=== PATIENT | male | born 1960 | race African-American/Black ===

== ENCOUNTER 2018-03-08 11:51 | Inpatient (IN) | payer OTHER ==
[~2018-03-08] VITALS: Ht 177.8 cm; Wt 76.2 kg
--- NOTE | ~2018-03-08 | H ---
[facility] [place] [address] HISTORY AND PHYSICAL Name: DASIA LYONS Room #: 208-P [facility] Jose Elias MKesha#: [id number] Admission: 03/08/18 Attend Phys: Oren Pritchard MD, Discharge: Date of : 58 Report #: [id number] THIS REPORT FOR: //name// CC: FAM unknown Oren Pritchard DATE OF SERVICE: 03/08/2018 HISTORY OF PRESENT ILLNESS: The patient is a 57-year-old male without any real significant past medical history. He has had some borderline cholesterol elevation in the past. He presents with a 2-week history of some intermittent exertional chest discomfort. 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 He had rest pain this morning with significant substernal chest pain associated with shortness of breath and diaphoresis. This was the worst that he had had. Previously, he had been with doing indoor rock climbing and some running. But this has only been occurring for a couple of weeks. Slightly more fatigued. No syncope or presyncope and no prior cardiac history. Essentially he takes no medications. His laboratory work looked relatively normal. His troponin was 0.55. The EKG from the field suggested ST elevation anteriorly with some Q-waves. He does not note any other prolonged episodes of pain nothing longer than 30 or 60 seconds as far as this discomfort prior to this. ALLERGIES: SULFA. PAST MEDICAL HISTORY: Positive only for meniscal surgery on his knee. He had some borderline cholesterol elevation, although not treated. He has had some statins in the past, but apparently had some myalgias, simvastatin he had been intolerant to. FAMILY HISTORY: Positive with his father and grandfather that was for premature disease. Father was 68. 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 He lives in [place], [place]. REVIEW OF SYSTEMS: Negative except for some occasional nocturia. PHYSICAL EXAMINATION: GENERAL: He is alert, in minimal discomfort (EKG shows some improvement). VITAL SIGNS: Blood pressure 140/82. HEENT: Eyes reveal xanthelasma. His pharynx is clear. NECK: Shows preserved upstrokes without JVD or bruits. LUNGS: Clear. CARDIOVASCULAR: Regular rate and rhythm, S1, S2, without murmur or gallop. ABDOMEN: Soft. No HSM or abdominal bruit. [facility] [address] [place] [address] HISTORY AND PHYSICAL Name: DASIA LYONS Room #: 208-P [facility] Jose Elias Patrick#: [id number] Admission: 03/08/18 Attend Phys: Oren Pritchard MD, Discharge: Date of : 58 Report #: [id number] EXTREMITIES: Reveal no edema. Pulses intact. NEUROLOGIC: Nonfocal. SKIN: Warm and dry without xanthoma or ulcer. MUSCULOSKELETAL: No gross joint deformity. ASSESSMENT: 1. 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 2. History of hypercholesterolemia. RECOMMENDATIONS AND PLAN: We will proceed emergently catheterization lab to delineate the anatomy. The story sounds consistent with a stuttering infarct. Aspirin, Lipitor 80 and heparin have been given. Risks, benefits, alternatives were discussed with the patient. We are proceeding emergently to the catheterization lab for possible intervention. By: 1336 1353 Oren Pritchard MD, FACC /nt
--- NOTE | ~2018-03-08 | EKG ---
[address] [address] ELECTROCARDIOGRAM REPORT Name: DASIA LYONS Room #: 208-P ADM IN M.R.#: [id number] Admission: 03/08/18 Attend Phys: Oren Pritchard MD, Discharge: Date of : 58 Report #: [id number] THIS REPORT FOR: //name// [facility] Test Date: 2018-03-09 Test Time: 07:11:58 Pat Name: DASIA LYONS Department: Room: 208 P Gender: M Clinical Nursing Professor: JOSE : 1960 Requested By: Lori Steiner Order Number: [id number] MD: Zhou Johns Measurements Intervals [place] Rate: 63 P: 57 ND: 165 QRS: -57 QRSD: 73 T: 61 QT: 407 QTc: 417 Interpretive Statements Sinus rhythm Atrial premature complex Left atrial enlargement Left axis deviation Anteroseptal infarct, age indeterminate Compared to ECG 03/08/2018 11:53:13 Atrial premature complex(es) now present Electronically Signed On 03-09-2018 12:03:00 MORTARMAN by Zhou Johns [email or web address] <ELECTRONICALLY SIGNED> By: Zhou Johns MD 03/09/18 1203 0711 0711 Zhou Johns MD /EPI
--- NOTE | ~2018-03-08 | 2DMMODE ---
[facility] [address] [place] [address] 2 D/M-MODE ECHOCARDIOGRAM Name: SERENADASIA Room #: 208-P ADM IN M.R.#: [id number] Admission: 03/08/18 Attend Phys: Oren Pritchard, Discharge: Date of : 58 Date of Service: 03/09/18 0949 Report #: [id number] THIS REPORT FOR: //name// APPROVED REPORT Study performed: 03/09/2018 09:06:52 EXAM: Comprehensive 2D, Doppler, and color-flow Echocardiogram Patient Location: Echo lab Room #: 208 Status: routine BSA: 1.97 HR: 65 bpm BP: 122/76 mmHg Rhythm: NSR Other Information Study Quality: Adequate Indications CAD Chest Pain 2D Dimensions RVDd: 35.15 mm IVSd: 11.10 (7-11mm) LVOT Diam: 22.13 (18-24mm) LVDd: 38.03 mm PWd: 9.80 (7-11mm) Ascending Ao: 35.84 (22-36mm) LVDs: 25.37 (25-40mm) Aortic Root: 36.26 mm IVC: 18.00 mm Volumes Left Atrial Volume (Systole) Single Plane 4CH: 29.03 mL Single Plane 2CH: 44.77 mL LA ESV Index: 23.00 mL/m2 Aortic Valve AoV Peak Gurmeet.: 1.89 m/s AO Peak Gr.: 14.32 mmHg LVOT Max P.97 mmHg LVOT Max V: 1.58 m/s TITO Vmax: 3.21 cm2 AI Vmax: 3.45 m/s AI Stonewall: 1.63 m/s2 AI PHT: 612.95 ms [facility] [place] [address] [address] 2 D/M-MODE ECHOCARDIOGRAM Name: SERENADASIA Room #: 208-P [facility] IN ..#: [id number] Admission: 03/08/18 Attend Phys: Oren Pritchard, Discharge: Date of : 58 Date of Service: 03/09/18 0949 Report #: [id number] Mitral Valve E/A Ratio: 1.2 MV Decel. Time: 213.94 ms MV E Max Gurmeet.: 0.80 m/s MV A Gurmeet.: 0.68 m/s MV PHT: 62.04 ms IVRT: 87.66 ms Pulmonary Valve PV Peak Gurmeet.: 0.99 m/s PV Peak Gr.: 3.91 mmHg Pulmonary Vein P Vein S: 0.47 m/s P Vein A: 0.28 m/s P Vein D: 0.31 m/s P Vein A Dur.: 110.7 msec P Vein S/D Ratio: 1.52 Left Ventricle The left ventricle is normal size. There is hypokinesis in the apical septal wall. There is hypokinesis in the apical inferior wall. There is normal left ventricular wall thickness. The left ventricular systolic function is normal. The left ventricular ejection fraction is within the normal range. LVEF is 50 - 55% The left ventricular diastolic function is normal. Right Ventricle The right ventricle is normal size. The right ventricular systolic function is normal. Atria The left atrium size is normal. The right atrium size is normal. Aortic Valve The aortic valve is normal in structure. Mild aortic regurgitation. There is no aortic valvular stenosis. Mitral Valve The mitral valve is normal in structure. There is no mitral valve regurgitation noted. No evidence of mitral valve stenosis. Tricuspid Valve The tricuspid valve is normal in structure. There is no tricuspid valve regurgitation noted. Pulmonic Valve The pulmonary valve is normal in structure. There is no pulmonic [address] [address] 2 D/M-MODE ECHOCARDIOGRAM Name: DASIA LYONS Room #: 208-P [facility] IN .R.#: [id number] Admission: 03/08/18 Attend Phys: Oren Pritchard, Discharge: Date of : 58 Date of Service: 03/09/18 0949 Report #: [id number] valvular regurgitation. Great Vessels The aortic root is normal in size. IVC is normal in size and collapses >50% with inspiration. Pericardium There is no pericardial effusion. <Conclusion> The left ventricle is normal size. There is hypokinesis in the apical septal wall. There is hypokinesis in the apical inferior wall. LVEF is 50 - 55% The left ventricular diastolic function is normal. The right ventricle is normal size. The left atrium size is normal. Mild aortic regurgitation. There is no mitral valve regurgitation noted. There is no tricuspid valve regurgitation noted. The aortic root is normal in size. There is no pericardial effusion. <ELECTRONICALLY SIGNED> By: Oren Pritchard MD, FACC 03/09/1849 8 Oren Pritchard MD, FACC /INF
--- NOTE | ~2018-03-08 | EKG ---
[address] [address] ELECTROCARDIOGRAM REPORT Name: DASIA LYONS Room #: 170-9 [facility] M.R.#: [id number] Admission: 03/08/18 Attend Phys: Oren Pritchard MD, Discharge: Date of : 58 Report #: [id number] THIS REPORT FOR: //name// [facility] ED Test Date: 2018-03-08 Test Time: 11:53:13 Pat Name: DASIA LYONS Department: Room: 170 Gender: M Seo Manager: : 1960 Requested By: Moose Owen Order Number: [id number] MD: Bradley Mg Measurements Intervals [place] Rate: 68 P: 51 TN: 169 QRS: -42 QRSD: 86 T: 32 QT: 408 QTc: 434 Interpretive Statements Sinus rhythm Left axis deviation Anterior infarct, old No previous ECG available for comparison Electronically Signed On 03-08-2018 13:18:45 BAND TEACHER by Bradley Mg [email or web address] <ELECTRONICALLY SIGNED> By: Bradley Mg MD 03/08/18 1318 1153 1153 MD AL Payne
--- NOTE | ~2018-03-08 | EKG ---
[address] [address] ELECTROCARDIOGRAM REPORT Name: DASIA LYONS Room #: 208-P [facility] M.R.#: [id number] Admission: 03/08/18 Attend Phys: Oren Pritchard MD, Discharge: Date of : 58 Report #: [id number] THIS REPORT FOR: //name// [facility] Test Date: 2018-03-08 Test Time: 19:45:28 Pat Name: DASIA LYONS Department: Room: 208 P Gender: M Package Line Relief Operator: Chapis MILLER : 1960 Requested By: Oren Pritchard Order Number: [id number] MD: Christopher Kim Measurements Intervals [place] Rate: 63 P: 62 DE: 169 QRS: -57 QRSD: 84 T: 60 QT: 414 QTc: 424 Interpretive Statements Sinus rhythm Left anterior fascicular block Anteroseptal infarct, age indeterminate Compared to ECG 03/08/2018 11:53:13 Left anterior fascicular block now present Left-axis deviation no longer present Myocardial infarct finding still present Electronically Signed On 03-09-2018 9:16:44 MOLDED PARTS INSPECTOR by Christopher Kim [email or web address] <ELECTRONICALLY SIGNED> By: Christopher Kim MD 03/09/18 0916 44 44 Christopher Kim MD /EPI
--- NOTE | ~2018-03-08 | CATHLAB ---
[facility] [address] [place] [address] INVASIVE PROCEDURE REPORT Name: DASIA LYONS Room #: 210-P [facility] IN M.R.#: [id number] Admission: 03/08/18 Attend Phys: Oren Pritchard, Discharge: 03/10/18 Date of : 58 Date of Service: 03/11/18 0807 Report #: [id number] THIS REPORT FOR: //name// APPROVED REPORT Study performed: 03/08/2018 12:18:50 Patient Details Patient Status: ED Room #: The patient is a 57 year-old male Event Personnel Oren Pritchard Rn Peritoneal Dialysis, Aida HumphriesR, Monica Reid Amber Monitor, Antonio Daly RN Procedures Performed Art Access - R femoral artery* 43752 Initial Mod Sed Same Phys/QHP Gr5y 071260 78404 Mod Sed Same Phys/QHP Ea 640951 Left Heart Cath w/or w/o Coronaries 0056459 [facility] Aortogram Abdominal Peripheral Angio 448798 MITRA Revasc AMI Total/Sub Single LAD C9606 AMIREVSING Hemostasis w/ Mynx Indication Chest pain Procedure Narrative The Right Groin^ was infiltrated with 1% Lidocaine subcutaneous anesthesia. A PINNACLE 6FR Sheath #[id number] sheath was inserted into the RFA^. Coronary angiography was performed using coronary diagnostic catheters. The right coronary system was accessed and visualized with a JR4 catheter. The left coronary system was accessed and visualized with a JL4 catheter. The left ventricle was accessed and visualized with a PIGTAIL catheter. Left ventriculogram was performed in 30 degree projection. An aortogram of the abdominal aorta was performed. Closure device was deployed with a 6 Fr MYNXGRIP 6/7F #[id number]. The patient tolerated the procedure well and there were no complications associated with the procedure. There was no hematoma. Intraoperative Conscious Sedation Sedation start time: 12:30 Case end Time: 13:36 Fentanyl 50 mcg Versed 1 mg Fluoro Time: 9.50 minutes [facility] [address] [place] [address] INVASIVE PROCEDURE REPORT Name: DASIA LYONS Room #: 210-P [facility] IN M.R.#: [id number] Admission: 03/08/18 Attend Phys: Oren Pritchard, Discharge: 03/10/18 Date of : 58 Date of Service: 03/11/18 0807 Report #: [id number] Dose: DAP 8195.00 cGycm2 1146 mGy Contrast Type and Amount: Omnipaque 180 ml Hemodynamics The aortic pressure is 154/83 mmHg with a mean of 117 mmHg. The left ventricular pressure is 162/13 mmHg with a mean of mmHg. The left ventricular end diastolic pressure is 30 mmHg. PCI Technique Lesion Percutaneous coronary intervention was performed on the mid left anterior descending artery segment. A LAUNCHER 6FR EBU 4.5 #[id number] Guide Catheter was used to engage the ostium. A Luge Wire .014 x 182CM #[id number] Interventional Guidewire was used to cross the lesion. BALLOON DILATION A Balloon catheter Sprinter OTW 3.0 x 12 #[id number] was inserted and inflated up to 6.00atm for 23seconds. Additional Inflation: 8.00atm for 26seconds. Additional Inflation: 12.00atm for 25seconds. STENT DEPLOYMENT A drug-eluting stent RESOLUTE TOÑO OTW 3.5 X 15 #[id number] was inserted and inflated up to 10.00atm for 35seconds. Additional Inflation: 12.00atm for 27seconds. POST STENT DEPLOYMENT BALLOON DILATION A Balloon catheter TREK NC OTW 3.5 X 12 #[id number] was inserted and inflated up to 18.00atm for 32seconds. Additional Inflation: 18.00atm for 30seconds. Conclusion #1 successful emergent PTCA stent of a proximal mid LAD subtotal lesion placement of a 3.5 x 15 Toño drug-eluting stent postdilated to 3.7 mm yielding 0% residual JONO grade 3 flow (acute infarct vessel) #2 left main free of disease giving rise to LAD and circumflex #3 a large circumflex OM system although anatomically nondominant no occlusive disease large OM #4 anatomically dominant right coronary artery moderate size with mild irregularities doing rise to PDA system predominantly #5 normal left ventricular size with a moderate amount of anterior apical stunning/hypokinesis. EF 40-45% #6 mildly tortuous abdominal aorta no aneurysm renal arteries appear widely patent Recommendations and plan: This a predominantly aborted anterior wall [facility] [address] [place] [address] INVASIVE PROCEDURE REPORT Name: DASIA LYONS Room #: 210-P [facility] IN M.R.#: [id number] Admission: 03/08/18 Attend Phys: Oren Pritchard, Discharge: 03/10/18 Date of : 58 Date of Service: 03/11/18806 Report #: [id number] infarct. Excellent result. I expect anterior wall to improve. Dual antiplatelet therapy at least one year. Patient transferred to CCU in stable condition to follow post stent protocol. <ELECTRONICALLY SIGNED> By: Oren Pritchard MD, FACC 03/11/18806 6 6 Oren Pritchard MD, FACC /INF
[2018-03-08 11:52] VITALS: BP 161/91
[2018-03-08 12:13] LABS: POC CA IONIZED 4.6 mg/dL (4.5-5.3); POC CREATININE 0.8 mg/dL (0.6-1.3); POC POTASSIUM 4.1 mmol/L (3.5-5.1)
[2018-03-08 12:18] LABS: ABSOLUTE NEUTROPHILS 4.8 thou/uL (1.4-8.2); BASOPHILS 1.1 % (0.0-2.0); HEMATOCRIT 48.6 % (42.0-52.0); HEMOGLOBIN 15.9 gm/dL (14.0-18.0); LYMPHOCYTES 22.5 % (24.0-44.0); MCH 30.5 pg (26.0-34.0); MCHC 32.8 g/dL (28.0-37.0); MCV 92.8 fL (80.0-100.0); MONOCYTES 9.2 % (1.0-8.0); PLATELET COUNT 236 thou/uL (150-400); POLYS 63.2 % (36.0-66.0); RBC 5.24 mil/uL (4.50-6.00); RDW 14.1 % (10.5-14.5); WBC 7.6 thou/uL (4.0-11.0)
[2018-03-08 12:23] LABS: CALCIUM 8.9 mg/dL (8.5-10.1); CREATININE 0.9 mg/dL (0.7-1.3); POTASSIUM 4.1 mmol/L (3.5-5.1)
[2018-03-08 12:31] LABS: TROPONIN-I 0.55 ng/mL (<0.06)
[2018-03-08 13:36] LABS: CHOLESTEROL 232 mg/dL (<200); HDL CHOLESTEROL 56 mg/dL (>40); LDL CHOLESTEROL 150 mg/dL (<100); TC:HDL 4.1 Ratio (Not establshd); TRIGLYCERIDE 134 mg/dL (<150); VLDL 27 mg/dL (<40)
[2018-03-08 19:27] VITALS: BP 118/71
[2018-03-09 04:23] LABS: HEMATOCRIT 44.9 % (42.0-52.0); HEMOGLOBIN 15.2 gm/dL (14.0-18.0); MCH 30.7 pg (26.0-34.0); MCHC 33.8 g/dL (28.0-37.0); MCV 90.8 fL (80.0-100.0); RBC 4.94 mil/uL (4.50-6.00); RDW 13.6 % (10.5-14.5); WBC 9.4 thou/uL (4.0-11.0)
[2018-03-09 04:36] LABS: ALBUMIN 3.6 g/dL (3.4-5.0); CALCIUM 8.7 mg/dL (8.5-10.1); CREATININE 0.9 mg/dL (0.7-1.3); POTASSIUM 4.1 mmol/L (3.5-5.1); TOTAL BILIRUBIN 1.3 mg/dL (<0.1-1.0); TOTAL PROTEIN 6.4 g/dL (6.4-8.2)
[2018-03-09 04:53] VITALS: BP 122/76
[2018-03-09 08:48] VITALS: BP 11/70
[2018-03-09] MEDS ORDERED: ATORVASTATIN CA40 MG PO (09:00)
[2018-03-09] MEDS ORDERED: METOPROLOL SUCC25 M1 PO (09:00)
[2018-03-09] MEDS ORDERED: EFFIENT10 MG PO (09:00)
[2018-03-09] MEDS ORDERED: COZAAR 25 MG TA25 M1 PO (09:00)
[2018-03-09] MEDS ORDERED: ASA5UEC PO (09:00)
[2018-03-09 12:20] VITALS: BP 95/55
[2018-03-09 19:37] VITALS: BP 111/70
[2018-03-10 04:37] LABS: CREATININE 0.8 mg/dL (0.7-1.3); POTASSIUM 4.2 mmol/L (3.5-5.1)
[2018-03-10 04:50] VITALS: BP 110/68
[2018-03-10 09:01] VITALS: BP 103/68
[2018-03-10 10:23] VITALS: BP 103/68
== END 2018-03-10 11:30 | disposition home or self-care (01) | DRG 246 ==
LOC: ER 11:51 → EROBS 12:21 → 2N 12:21
PROVIDERS: Emergency Medicine; Nurse Practitioner Adult Health; Nurse Practitioner Gerontology
PROC: 4A023N7 Measurement of Cardiac Sampling and Pressure, Left Heart, Percutaneous Approach (ICD-10-PCS; principal; 2018-03-08)
PROC: 027034Z Dilation of Coronary Artery, One Artery with Drug-eluting Intraluminal Device, Percutaneous Approach (ICD-10-PCS; principal; 2018-03-08)
PROC: B2151ZZ Fluoroscopy of Left Heart using Low Osmolar Contrast (ICD-10-PCS; principal; 2018-03-08)
PROC: B2111ZZ Fluoroscopy of Multiple Coronary Arteries using Low Osmolar Contrast (ICD-10-PCS; principal; 2018-03-08)
DX: I21.09 ST elevation (STEMI) myocardial infarction involving other coronary artery of anterior wall (principal); I50.33 Acute on chronic diastolic (congestive) heart failure; E78.00 Pure hypercholesterolemia, unspecified; Z88.1 Allergy status to other antibiotic agents; Z88.8 Allergy status to other drugs, medicaments and biological substances; Z82.49 Family history of ischemic heart disease and other diseases of the circulatory system; Z28.21 Immunization not carried out because of patient refusal
CPT/HCPCS: 10081

== ENCOUNTER 2018-03-10 21:48 | Emergency (ER) | payer OTHER ==
[~2018-03-10] VITALS: Ht 177.8 cm; Wt 79.4 kg
[~2018-03-10 21:48] MED LIST: ASA5UEC PO; ATORVASTATIN CA40 MG PO; COZAAR 25 MG TA25 M1 PO; EFFIENT10 MG PO; METOPROLOL SUCC25 M1 PO
[2018-03-11 03:31] VITALS: BP 102/61
== END 2018-03-11 03:31 | disposition home or self-care (01) ==
LOC: ER 21:48
DX: I97.630 Postprocedural hematoma of a circulatory system organ or structure following a cardiac catheterization (principal); Z88.1 Allergy status to other antibiotic agents; Z88.8 Allergy status to other drugs, medicaments and biological substances